=== PATIENT | female | born 1975 | race Caucasian/White ===

== ENCOUNTER 2017-04-05 18:03 | Observation (INO) ==
--- NOTE | 2017-04-05 18:53 | Emergency Department Note ---
START Narrative - START START: I examined this patient and my medical decision-making was reviewed with the Resident Physician. I agree with the documented findings, disposition and treatment plan as described except to the extent set forth below. 41-year-old female presents emergency room for dyspnea, chest pain, edema. History of congestive heart failure requiring a previous ICU admission. She states that for the past 2 days she has had this chest pain and chest pressure associated with dyspnea. She was seen at an outlying ER 2 nights ago in which they gave her a GI cocktail and Ativan and sent her home she states. Workup from a cardiac CHF standpoint from her and. Patient will likely need to be admitted.
[2017-04-05 19:15] LABS: Bilirubin,Urine Negative (Negative); Blood,Urine Negative (Negative); Clarity,Urine Clear (Clear); Color,Urine Yellow (Yellow); Glucose,Urine (UA) Normal (Normal); Ketones,Urine Negative (Negative); Leukocyte Esterase,Urine Negative (Negative); Nitrite,Urine Negative (Negative); PH,Urine 6.5 pH Units (5.0-8.0); Protein,Urine Negative (Neg-Trace); Specific Gravity,Urine 1.009 (1.010-1.025); Urobilinogen,Urine Normal (Normal)
[2017-04-05 19:24] LABS: Basophils % 0.4 %; Eosinophils # 0.4 K/mcL (0.0-0.6); Eosinophils % 4.5 %; Hematocrit 34.4 % (35.3-44.9); Hemoglobin 10.7 g/dL (11.5-15.4); Immature Granulocytes % 0.4 % (0-4); Lymphocytes % 32.2 %; Mean Corpuscular HGB Conc 31.1 g/dL (31.6-35.5); Mean Corpuscular Hemoglobin 29.2 pg (28.0-33.3); Mean Corpuscular Volume 93.7 fL (83.0-100.0); Monocytes # 0.5 K/mcL (0.0-1.3); Monocytes % 4.9 %; Neutrophils # 5.3 K/mcL (1.6-8.9); Platelet Count 232 K/mcL (140-400); Red Blood Count 3.67 M/mcL (3.82-4.97); Red Cell Distribution Width 16.7 % (11.5-14.5); Segmented Neutrophils % 57.6 %
[2017-04-05 19:37] LABS: BUN/Creatinine Ratio 11 (6-26); Blood Urea Nitrogen 8 mg/dL (7-20); Carbon Dioxide 22 mEq/L (19-29); Chloride 110 mEq/L (98-109); Glucose 90 mg/dL (70-99); Osmolality,Calculated 292 (280-300); Potassium 3.5 mEq/L (3.5-4.5); Sodium 142 mEq/L (136-145); eGFR For African Americans > 60 (> 60); eGFR For Non-African Americans > 60 (> 60)
[2017-04-05] MEDS ORDERED: Aspirin 325 MG TABLET PO ONE (19:48)
[2017-04-05] MEDS ORDERED: Furosemide 40 MG/4 ML VIAL IVP ONE (19:50)
[2017-04-05 19:55] LABS: Prothrombin Time 10.5 Seconds (9.4-12.1)
[2017-04-05 19:58] LABS: Activated Partial Thrombo Time 30.3 Seconds (26.0-36.0)
--- NOTE | 2017-04-05 20:05 | Emergency Department Note ---
Disposition Clinical Impression: Chest pain Qualifiers: Chest pain type: unspecified Qualified Code(s): R07.9 - Chest pain, unspecified Dyspnea Qualifiers: Dyspnea type: unspecified Qualified Code(s): R06.00 - Dyspnea, unspecified CHF exacerbation Qualifiers: Congestive heart failure type: unspecified congestive heart failure type Qualified Code(s): I50.9 - Heart failure, unspecified Disposition: Admitted As Inpatient Condition: Good General Adult HPI - General Chief complaint: ED Chest Pain Stated complaint: legs swelling, SOB and CP Time Seen by Provider: 04/05/17 18:28 Source: patient Limitations: no limitations Nursing Notes Reviewed: Yes Vital Signs Reviewed: Yes - History of Present Illness HPI Narrative: 41-year-old female with a past medical history of schizophrenia, bipolar, depression, congestive heart failure. She presents today due to chest pain, shortness of breath, lower extremity edema bilaterally. She states that at one point she was in the ICU with congestive heart failure but she cannot tell me why that happened. She denies having any issues with congestive heart failure since then and that was multiple years ago. She states that the pain in her chest is intermittent and is substernal. She went to an emergency department 2 days ago and was sent home and she states she is only getting worse. She denies having a fever. Denies any cough or productive sputum. She does take 20 mg of Lasix daily Radiation: non-radiation Pain Severity: severe Pain Scale: 9 Improves with: nothing Worsens with: other (exertion) Treatments Prior to Arrival: none - Related Data Home Medications Medication Instructions Recorded Confirmed Escitalopram [Lexapro] 20 mg PO DAILY 05/11/16 04/05/17 Acyclovir [Zovirax] 400 mg PO BID 08/30/16 04/05/17 Estradiol 2 mg PO DAILY 12/26/16 04/05/17 Furosemide [Lasix] 20 mg PO DAILY 12/26/16 04/05/17 Calcium Carbonate/Vitamin D3 1 each PO DAILY 04/03/17 04/05/17 [Oyster Shell Calcium-Vit D Tab] Clindamycin HCl [Cleocin HCl] 300 mg PO TID 04/03/17 04/05/17 Omeprazole [PriLOSEC] 20 mg PO BIDAC 04/03/17 04/05/17 Pyridoxine HCl [Vitamin B-6] 25 mg PO DAILY 04/03/17 04/05/17 hydrOXYzine pamoate [HydrOXYzine 25 mg PO BID 04/03/17 04/05/17 Pamoate] lamoTRIgine [Lamictal] 25 mg PO HS 04/03/17 04/05/17 Buspirone HCl [Buspar] 5 mg PO BID 04/05/17 04/05/17 Nicotine Patch [Nicoderm] 14 mg TD DAILY 04/05/17 04/05/17 OLANZapine [Zyprexa] 5 mg PO DAILY 04/05/17 04/05/17 Previous Rx's Medication Instructions Recorded Gabapentin [Neurontin] 300 mg PO TID #21 capsule 02/13/17 Allergies Allergy/AdvReac Type Severity Reaction Status Date / Time cephalexin [From Keflex] Allergy Hives Verified 04/05/17 21:37 fentanyl [From Duragesic] Allergy See Verified 04/05/17 21:37 Comments theophylline Allergy Anaphylaxis Verified 04/05/17 21:37 ketorolac [From Toradol] AdvReac Irritable Verified 04/05/17 21:37 NSAIDS (Non-Steroidal AdvReac Anaphylaxis Verified 04/05/17 21:37 Anti-Inflamma sulfamethoxazole AdvReac Vomiting Verified 04/05/17 21:37 [From Bactrim] tramadol [From Ultram] AdvReac Hives Verified 04/05/17 21:37 trimethoprim [From Bactrim] AdvReac Vomiting Verified 04/05/17 21:37 All systems ED: reviewed and negative except as stated. Constitutional: Denies: fever ENT ED: Denies: throat pain Cardiovascular: Reports: chest pain Respiratory: Reports: dyspnea. 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 Absent: respiratory distress - Cardiovascular Cardiovascular exam: Present: regular rate, normal rhythm - Abdominal Exam Abdominal exam: Present: soft, Non-Tender - Extremities Exam Extremities exam: Present: pedal edema (bilateral 2+ edema) - Neurological Exam Neurological exam: Present: alert, oriented X3 - Skin Skin exam: Present: warm, dry Course Course Narrative: Her BNP is elevated and she does have bilateral lower extremity edema. Her chest x-ray is negative. We will go ahead and give her some IV Lasix and a trial of nitro. In reviewing the records I do not see a chest pain rule out in the last few years. We will admit her to the hospital for CHF and chest pain rule out Vital Signs Temperature 98.2 F 04/05/17 18:09 Pulse Rate 102 04/05/17 18:09 Respiratory Rate 22 04/05/17 18:09 Blood Pressure 130/81 04/05/17 18:09 O2 Sat by Pulse Oximetry 93 04/05/17 18:09 Temperature 98.2 F 04/05/17 18:09 Pulse Rate 104 04/05/17 21:16 Respiratory Rate 16 04/05/17 21:16 Blood Pressure 131/77 04/05/17 21:16 O2 Sat by Pulse Oximetry 95 04/05/17 21:16 Oxygen Delivery Oxygen Delivery Room Air Medical Decision Making - Medical Records Medical records reviewed: Yes I reviewed the patient's medical records. - Lab Data Lab results reviewed: Yes I reviewed the patient's lab results. Result diagrams: 04/05/17 19:17 04/05/17 19:17 Lab Results 04/05/17 04/05/17 04/05/17 Range/Units 19:00 19:17 19:17 WBC (4.3-11.1) K/mcL RBC (3.82-4.97) M/mcL Hgb (11.5-15.4) g/dL Hct (35.3-44.9) % MCV (83.0-100.0) fL MCH (28.0-33.3) pg MCHC (31.6-35.5) g/dL RDW (11.5-14.5) % Plt Count (140-400) K/mcL MPV (9.4-12.4) fL Immature Gran % (0-4) % Seg Neutrophils % % Lymphocytes % % Monocytes % % Eosinophils % % Basophils % % Neutrophils # (1.6-8.9) K/mcL Lymphocytes # (0.6-4.6) K/mcL Monocytes # (0.0-1.3) K/mcL Eosinophils # (0.0-0.6) K/mcL Basophils # (0.0-0.2) K/mcL PT 10.5 (9.4-12.1) Seconds INR 1.0 APTT 30.3 (26.0-36.0) Seconds D-Dimer 558 H (0-500) ng/mLFEU Sodium (136-145) mEq/L Potassium (3.5-4.5) mEq/L Chloride (98-109) mEq/L Carbon Dioxide (19-29) mEq/L BUN (7-20) mg/dL Creatinine (0.57-1.11) mg/dL Est GFR ( Amer) (> 60) Est GFR (Non-Af Amer) (> 60) BUN/Creatinine Ratio (6-26) Glucose (70-99) mg/dL Calculated Osmolality (280-300) Calcium (8.6-10.8) mg/dL Troponin I (0-0.03) ng/mL B-Natriuretic Peptide 155 H (0-100) pg/mL Urine Color Yellow (Yellow) Urine Clarity Clear (Clear) Urine pH 6.5 (5.0-8.0) pH Units Ur Specific [place] 1.009 L (1.010-1.025) Urine Protein Negative (Neg-Trace) mg/dL Urine Glucose (UA) Normal (Normal) mg/dL Urine Ketones Negative (Negative) mg/dL Urine Blood Negative (Negative) Urine Nitrite Negative (Negative) Urine Bilirubin Negative (Negative) Urine Urobilinogen Normal (Normal) mg/dL Ur Leukocyte Esterase Negative (Negative) Ur Culture Indicated? NO (NO) 04/05/17 04/05/17 04/05/17 Range/Units 19:17 19:: WBC 9.2 (4.3-11.1) K/mcL RBC 3.67 L (3.82-4.97) M/mcL Hgb 10.7 L (11.5-15.4) g/dL Hct 34.4 L (35.3-44.9) % MCV 93.7 (83.0-100.0) fL MCH 29.2 (28.0-33.3) pg MCHC 31.1 L (31.6-35.5) g/dL RDW 16.7 H (11.5-14.5) % Plt Count 232 (140-400) K/mcL MPV 11.0 (9.4-12.4) fL Immature Gran % 0.4 (0-4) % Seg Neutrophils % 57.6 % Lymphocytes % 32.2 % Monocytes % 4.9 % Eosinophils % 4.5 % Basophils % 0.4 % Neutrophils # 5.3 (1.6-8.9) K/mcL Lymphocytes # 3.0 (0.6-4.6) K/mcL Monocytes # 0.5 (0.0-1.3) K/mcL Eosinophils # 0.4 (0.0-0.6) K/mcL Basophils # 0.0 (0.0-0.2) K/mcL PT (9.4-12.1) Seconds INR APTT (26.0-36.0) Seconds D-Dimer (0-500) ng/mLFEU Sodium 142 (136-145) mEq/L Potassium 3.5 (3.5-4.5) mEq/L Chloride 110 H (98-109) mEq/L Carbon Dioxide 22 (19-29) mEq/L BUN 8 (7-20) mg/dL Creatinine 0.72 (0.57-1.11) mg/dL Est GFR ( Amer) > 60 (> 60) Est GFR (Non-Af Amer) > 60 (> 60) BUN/Creatinine Ratio 11 (6-26) Glucose 90 (70-99) mg/dL Calculated Osmolality 292 (280-300) Calcium 9.0 (8.6-10.8) mg/dL Troponin I 0.01 (0-0.03) ng/mL B-Natriuretic Peptide (0-100) pg/mL Urine Color (Yellow) Urine Clarity (Clear) Urine pH (5.0-8.0) pH Units Ur Specific [place] (1.010-1.025) Urine Protein (Neg-Trace) mg/dL Urine Glucose (UA) (Normal) mg/dL Urine Ketones (Negative) mg/dL Urine Blood (Negative) Urine Nitrite (Negative) Urine Bilirubin (Negative) Urine Urobilinogen (Normal) mg/dL Ur Leukocyte Esterase (Negative) Ur Culture Indicated? (NO) - Radiology Data Radiology results reviewed: Yes I reviewed the patient's radiology results. - EKG Data EKG #1 EKG attestation: Yes I reviewed and interpreted this EKG. EKG shows normal: sinus rhythm Rate: normal Rhythm: NSR Clint/QRS: normal Interpretation: no acute changes Critical Care Time Critical Care Time: Yes Total Critical Care Time: 35 Attestation: Critical care performed: Time is exclusive of separately billable procedures. Time includes: direct patient care, patient reassessment, coordination of patient care, interpretation of data (laboratory data, radiology data, and respiratory data), review of patient's medical records, medical consultation and documentation of patient care. Procedures included in critical care time: Procedures excluded from critical care time: Attestation Statement - Attestation Attestation: I, Jerzy Pena MD, personally evaluated this patient and discussed their management with the resident physician. I reviewed the resident's note and agree with the documented findings, medical decision making, and plan of care. 41-year-old female presents to the emergency department with a complaint of increasing shortness of breath which started 2 days prior to arrival. Also some pressure and discomfort in her chest. She also complains of increasing swelling of her legs. She was seen at another facility 2 days ago and given a GI cocktail and Ativan. She states the symptoms have progressively worsened. She does have a history of CHF in the past requiring ICU admission. On examination patient is a well-developed obese female in no acute distress. She is alert and oriented 3. There is no cyanosis or diaphoresis. Patient is very anxious. No JVD noted. Breath sounds clear and equal bilaterally. Heart regular rate and rhythm. Abdomen soft and nontender with normal bowel sounds. No pedal edema noted. Labs reviewed. BNP is elevated at 155 and 2 days ago was 41. Also d-dimer elevated at 558. Chest x-ray negative. CTA of the lungs negative. No acute changes on EKG. Patient did receive Lasix 40 mg IV. The hospitalist, Dr. Louis, was consulted and accepted admission of the patient.
[2017-04-05] MEDS: Nitroglycerin 0.4 MG TAB.SUBL SL PRN (20:08)
[2017-04-05] MEDS ORDERED: *HR* HYDROmorphone (PF) 1 MG/ML SYRINGE IVP ONE (20:30)
--- NOTE | 2017-04-05 22:29 | Internal Med History&Physical ---
Date of Encounter: 04/05/17 Time of Encounter: 22:27 Assessment and Plan (1) CHF exacerbation Current visit: Yes Status: Acute Patient has diastolic congestive heart failure. Gentle diuresis. Will check echocardiogram. She had never had cardiac workup before. Serial cardiac markers. She has prior history of drug use. Will need workup to rule out coronary disease. See pantograph shows no evidence of pulmonary embolism. Will check venous Doppler's to rule out DVT. observation admission. Qualifiers: Congestive heart failure type: unspecified congestive heart failure type Qualified Code(s): I50.9 - Heart failure, unspecified Internal Medicine - H&P: HPI Chief complaint: sob History of present illness: Ms. Lin is a 41 year old female with multiple medical problems including congestive heart failure, etiology unclear on Lasix 20 mg PO daily, asthma, COPD not on home oxygen, history of hepatitis C virus infection, still smokes 2 packs of cigarettes daily presents of emergency room today with a main component of shortness of breath. For the past few days patient has been noticing progressive shortness of breath to the point where she short of breath with minimal exertion. She has noticed bilateral sporting both lower extremity and has gained 18 pounds over the past 2 weeks. She denies any increase. Production fever or chills. No chest wheezing. She has intermittent retrosternal chest pain with no clear relation to exertion. Past Med Surg Social Fam HX - Past Medical History Medical history: asthma, CHF, COPD, hepatitis, liver disease Psychiatric history: anxiety, bipolar, depression, schizophrenia, previous psychiatric hospitalization - Past Surgical History Surgical History: hysterectomy, other - Social History Smoking Status: Current every day smoker Smokeless Tobacco Status: No Alcohol use: none Drug use: none Internal Medicine - H&P: Meds Escitalopram [Lexapro] 20 mg PO DAILY 05/11/16 [History] Acyclovir [Zovirax] 400 mg PO BID 08/30/16 [History] Estradiol 2 mg PO DAILY 12/26/16 [History] Furosemide [Lasix] 20 mg PO DAILY 12/26/16 [History] Gabapentin [Neurontin] 300 mg PO TID #21 capsule 02/13/17 [Rx] Calcium Carbonate/Vitamin D3 [Oyster Shell Calcium-Vit D Tab] 1 each PO DAILY [History] Clindamycin HCl [Cleocin HCl] 300 mg PO TID 04/03/17 [History] Omeprazole [PriLOSEC] 20 mg PO BIDAC 04/03/17 [History] Pyridoxine HCl [Vitamin B-6] 25 mg PO DAILY 04/03/17 [History] hydrOXYzine pamoate [HydrOXYzine Pamoate] 25 mg PO BID 04/03/17 [History] lamoTRIgine [Lamictal] 25 mg PO HS 04/03/17 [History] Buspirone HCl [Buspar] 5 mg PO BID 04/05/17 [History] Nicotine Patch [Nicoderm] 14 mg TD DAILY 04/05/17 [History] OLANZapine [Zyprexa] 5 mg PO DAILY 04/05/17 [History] 3 Allergy/AdvReac Type Severity Reaction Status Date / Time cephalexin [From Keflex] Allergy Hives Verified 04/05/17 21:37 fentanyl [From Duragesic] Allergy See Verified 04/05/17 21:37 Comments theophylline Allergy Anaphylaxis Verified 04/05/17 21:37 ketorolac [From Toradol] AdvReac Irritable Verified 04/05/17 21:37 NSAIDS (Non-Steroidal AdvReac Anaphylaxis Verified 04/05/17 21:37 Anti-Inflamma sulfamethoxazole AdvReac Vomiting Verified 04/05/17 21:37 [From Bactrim] tramadol [From Ultram] AdvReac Hives Verified 04/05/17 21:37 trimethoprim [From Bactrim] AdvReac Vomiting Verified 04/05/17 21:37 All Systems PM: A 10-system review of systems was performed and is negative for pertinent findings except as documented above in the HPI. Review of systems: 10 point review of systems is negative except for HPI - Constitutional Vitals: Temp Pulse Resp BP Pulse Ox 98.2 F 104 16 131/77 95 04/05/17 18:09 04/05/17 21:16 04/05/17 21:16 04/05/17 21:16 04/05/17 21:16 Exam: General: Patient is A&O X3 Cardiac: normal S1, S2, no additional sounds or murmurs Chest: Clear to auscultation bilaterally Abdomen: soft, nontender, non distended, normal BS. Neuro: No focal deficits Internal Med - H&P Results - Labs CBC & Chem 7: 04/05/17 19:17 04/05/17 19:17
[2017-04-06] MEDS ORDERED: OxyCODONE CONC 5 MG/0.25 ML ORAL.SYG PO ONE (03:45)
[2017-04-06] MEDS ORDERED: *HR* OxyCODONE Immed Rel 5 MG TABLET PO ONE (04:10)
[2017-04-06 06:24] LABS: Basophils # 0.1 K/mcL (0.0-0.2); Basophils % 0.6 %; Eosinophils # 0.4 K/mcL (0.0-0.6); Eosinophils % 4.5 %; Hematocrit 33.4 % (35.3-44.9); Hemoglobin 10.2 g/dL (11.5-15.4); Immature Granulocytes % 0.4 % (0-4); Lymphocytes # 3.1 K/mcL (0.6-4.6); Lymphocytes % 33.2 %; Mean Corpuscular HGB Conc 30.5 g/dL (31.6-35.5); Mean Corpuscular Hemoglobin 28.7 pg (28.0-33.3); Mean Corpuscular Volume 94.1 fL (83.0-100.0); Mean Platelet Volume 11.7 fL (9.4-12.4); Monocytes # 0.6 K/mcL (0.0-1.3); Monocytes % 5.9 %; Neutrophils # 5.1 K/mcL (1.6-8.9); Platelet Count 227 K/mcL (140-400); Red Blood Count 3.55 M/mcL (3.82-4.97); Segmented Neutrophils % 55.4 %
[2017-04-06 06:41] LABS: BUN/Creatinine Ratio 14 (6-26); Blood Urea Nitrogen 11 mg/dL (7-20); Carbon Dioxide 24 mEq/L (19-29); Chloride 109 mEq/L (98-109); Creatine Kinase 65 Units/L (29-168); Glucose 123 mg/dL (70-99); Osmolality,Calculated 303 (280-300); Potassium 3.2 mEq/L (3.5-4.5); Sodium 146 mEq/L (136-145); eGFR For African Americans > 60 (> 60); eGFR For Non-African Americans > 60 (> 60)
[2017-04-06 07:01] LABS: Thyroid Stimulating Hormone 1.587 mcIU/mL (0.350-4.840)
[2017-04-06] MEDS: Gabapentin 300 MG CAPSULE PO SCH ×2 (08:37→16:18)
[2017-04-06] MEDS ORDERED: Acetaminophen 325 MG TABLET PO PRN (08:45)
[2017-04-06] MEDS ORDERED: Furosemide 20 MG/2 ML VIAL IVP SCH (09:00)
[2017-04-06] MEDS ORDERED: OLANZapine 5 MG TAB.RAPDIS PO SCH (09:00)
[2017-04-06] MEDS ORDERED: Nicotine 21 MG PATCH.TD24 TD SCH (09:00)
[2017-04-06 15:09] VITALS: BP 116/74
[2017-04-06] MEDS: Nitroglycerin 0.4 MG TAB.SUBL SL PRN (16:18)
--- NOTE | 2017-04-06 18:23 | Electrocardiograph Report ---
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
--- NOTE | 2017-04-06 19:07 | Discharge Summary ---
Date of Encounter: 04/06/17 Time of Encounter: 09:45 - Discharge Diagnosis (1) Chest pain Priority: Primary Status: Acute Comments: Patient reports midsternal chest pain for several days. It is intermittent without radiation. She does report shortness of breath, no nausea, no vomiting , no diarrhea or diaphoresis. Patient refused nitroglycerin throughout the day due to headache. She reports that she is allergic to NSAIDs as well. She reports that she is allergic to tramadol. At some point during the day she agreed to take a nitroglycerin and became tearful later on when she had a headache. I offered her Benadryl and Zofran for her headache. She is allergic to all NSAIDs so was unable to offer her Toradol. She stated she is going to leave and go to [facility], she is going to sign out AGAINST MEDICAL ADVICE. Troponins were negative 3. TSH was within normal limits 1.587. EKG was reviewed by me and showed sinus rhythm with a rate of 97 MD interval 108, QRS is 101 QTC 413. Echocardiogram done today revealed an LVEF of 60% with mild LV DD and no significant valvular dysfunction. All wall segments showed normal motion. I am concerned about some drug-seeking behavior. She has multiple allergies to multiple pain medications. I did start her gabapentin while she was here. 0ARRS report shows inconsistent prescribing of gabapentin, as well as prescriptions from several providers at several locations for oxycodone- acetaminophen as well as hydrocodone-acetaminophen. Qualifiers: Chest pain type: unspecified Qualified Code(s): R07.9 - Chest pain, unspecified (2) CHF exacerbation Priority: Primary Status: Acute Comments: Patient reports approximately 18 pound weight gain in 2 weeks as well as increasing shortness of breath, increasing VILLALTA. Lungs are clear without wheezing, rales, rhonchi, or respiratory distress. Echocardiogram results as above. Chest x-ray negative. BNP only mildly elevated at 155. She was treated with oxygen as well as IV Lasix. Qualifiers: Congestive heart failure type: unspecified congestive heart failure type Qualified Code(s): I50.9 - Heart failure, unspecified (3) Hepatitis C Priority: Secondary Status: Chronic Comments: Patient reports that she is positive for hepatitis C due to prior history of IV drug use. Patient states that she follows with primary care for treatment. Qualifiers: Viral hepatitis chronicity: chronic Hepatic coma status: without hepatic coma Qualified Code(s): B18.2 - Chronic viral hepatitis C (4) DVT prophylaxis Priority: Secondary Status: Acute Comments: Early ambulation was encouraged. - Discharge Medications Home Medications: Escitalopram [Lexapro] 20 mg PO DAILY 05/11/16 [History] Acyclovir [Zovirax] 400 mg PO BID 08/30/16 [History] Estradiol 2 mg PO DAILY 12/26/16 [History] Furosemide [Lasix] 20 mg PO DAILY 12/26/16 [History] Gabapentin [Neurontin] 300 mg PO TID #21 capsule 02/13/17 [Rx] Calcium Carbonate/Vitamin D3 [Oyster Shell Calcium-Vit D Tab] 1 each PO DAILY [History] Clindamycin HCl [Cleocin HCl] 300 mg PO TID 04/03/17 [History] Omeprazole [PriLOSEC] 20 mg PO BIDAC 04/03/17 [History] Pyridoxine HCl [Vitamin B-6] 25 mg PO DAILY 04/03/17 [History] hydrOXYzine pamoate [HydrOXYzine Pamoate] 25 mg PO BID 04/03/17 [History] lamoTRIgine [Lamictal] 25 mg PO HS 04/03/17 [History] Buspirone HCl [Buspar] 5 mg PO BID 04/05/17 [History] Nicotine Patch [Nicoderm] 14 mg TD DAILY 04/05/17 [History] OLANZapine [Zyprexa] 5 mg PO DAILY 04/05/17 [History] Allergies/Adverse Reactions: 3 Allergy/AdvReac Type Severity Reaction Status Date / Time cephalexin [From Keflex] Allergy Hives Verified 04/05/17 21:37 fentanyl [From Duragesic] Allergy See Verified 04/05/17 21:37 Comments theophylline Allergy Anaphylaxis Verified 04/05/17 21:37 ketorolac [From Toradol] AdvReac Irritable Verified 04/05/17 21:37 NSAIDS (Non-Steroidal AdvReac Anaphylaxis Verified 04/05/17 21:37 Anti-Inflamma sulfamethoxazole AdvReac Vomiting Verified 04/05/17 21:37 [From Bactrim] tramadol [From Ultram] AdvReac Hives Verified 04/05/17 21:37 trimethoprim [From Bactrim] AdvReac Vomiting Verified 04/05/17 21:37 Procedures/tests Complete & Pending: Procedures Performed prior 72 hours Category Date Time Status EV echocardiogram Routine Y 04/06/17 13:00 Completed EV venous imaging LE BI Routine Y 04/06/17 13:00 Completed Date of admission: 04/05/17 21:58 Primary care physician: Meghan Johnston MD Consults: 04/05/17 22:13 Consult to Physical Therapy [CONS] Routine Comment: Evaluate, develop and implement POC Reason for Consult: weakness Discharging clinician: Sindi Wong Anticipated date of discharge: 04/06/17 - Patient Status Disposition: Home, Self-Care Condition: Good - Discharge Instructions Forms: ED Satisfaction Letter Interval History: Please see assessment and plan for hospital course. Hospital course: Ms. Lin is a 41 year old female - Time Spent with Patient Total time spent providing and/or coordinating discharge services: - Constitutional Vitals: Temp Pulse Resp BP Pulse Ox 98.5 F 95 18 116/74 95 04/06/17 15:09 04/06/17 15:09 04/06/17 15:09 04/06/17 15:09 04/06/17 15:09 General appearance: Present: cooperative, A&O X 3, no acute distress, answers questions appropriately - Head Head exam: Present: atraumatic, normal inspection, normocephalic - Eye Eye exam: Present: normal appearance, conjuntiva pink, sclera anicteric - Neck Neck exam general surgery: Present: supple, trachea midline. Absent: lymphadenopathy - Respiratory Respiratory exam: Present: CTAB. Absent: accessory muscle use, rales, rhonchi, wheezes - Cardiovascular Cardiovascular exam: Present: RRR, +S1, +S2. Absent: diastolic murmur, gallop, rubs, systolic murmur - GI/Abdominal GI/Abdominal exam: Present: normal bowel sounds, soft, no peritoneal signs. Absent: distended, tenderness Additional comments: Abdomen is obese. - Extremities Exam Extremities exam: Present: normal inspection, pedal edema, warm, radial pulses palpable and symmetrical. Absent: calf tenderness, cyanotic, tenderness - Neurological Exam Neurological exam: Present: alert, oriented X3, no focal deficits. Absent: facial droop, speech deficit - Skin Skin exam: Present: dry, intact, normal color, warm. Absent: rash
[2017-04-06] MEDS ORDERED: lamoTRIgine 25 MG TABLET PO SCH (21:00)
--- NOTE | 2017-04-07 19:06 | Electrocardiograph Report ---
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
[2017-04-09 03:14] LABS: CK-MB (CK isoenzymes) 0 % (0-4); CK-MM (CK-isoenzymes) 100 % (96-100)
[2017-04-09 03:14] LABS: CK-MB (CK isoenzymes) 0 % (0-4); CK-MM (CK-isoenzymes) 100 % (96-100)
[2017-04-10 09:34] LABS: CK Total (Ck Isoenzymes) 67 U/L (20-180); CK-BB (CK isoenzymes) 0 % (0-0)
[2017-04-10 09:34] LABS: CK Total (Ck Isoenzymes) 68 U/L (20-180); CK-BB (CK isoenzymes) 0 % (0-0)
== END 2017-04-06 17:19 | disposition home or self-care (01) ==
LOC: 3BNU 18:03 → EMEROO 18:03 → 3BNU 23:24
PROVIDERS: ADMIT Hospitalist; ATTEND Registered Nurse

== ENCOUNTER 2020-11-23 10:31 | Inpatient (IN) ==
[2020-11-23] MEDS ORDERED: Naloxone 0.4 MG/ML INJ IVP PRN (11:55)
[2020-11-23] MEDS ORDERED: Ondansetron 4 MG/2 ML VIAL IVP PRN (11:55)
[2020-11-23] MEDS ORDERED: Dextrose Gel 15 GM/37.5 ML TUBE PO PRN ×2 (11:59)
[2020-11-23] MEDS ORDERED: D5% in Water 1,000 ML IVC PRN (11:59)
[2020-11-23] MEDS ORDERED: *HR* Dextrose 50 % in Water (Vial) 50 ML VIAL IVP PRN (11:59)
[2020-11-23] MEDS ORDERED: Insulin LISPRO 300 UNITS/3 ML VIAL SUBQ SCH (12:00)
[2020-11-23] MEDS ORDERED: levoFLOXacin 750 MG/150 ML 750 MG/150 ML BAG IVPB SCH (12:00)
[2020-11-23] MEDS ORDERED: Ringers Solution, Lactated 1,000 ML IVC SCH (12:00)
[2020-11-23 13:22] LABS: Basophils # 0.1 K/mcL (0.0-0.2); Basophils % 0.6 %; Eosinophils # 0.7 K/mcL (0.0-0.6); Eosinophils % 5.2 %; Hematocrit 44.2 % (35.3-44.9); Hemoglobin 13.9 g/dL (11.5-15.4); Immature Granulocytes % 0.4 % (0-4); Lymphocytes # 3.7 K/mcL (0.6-4.6); Lymphocytes % 29.6 %; Mean Corpuscular HGB Conc 31.4 g/dL (31.6-35.5); Mean Corpuscular Hemoglobin 27.3 pg (28.0-33.3); Mean Corpuscular Volume 86.7 fL (83.0-100.0); Mean Platelet Volume 11.5 fL (9.4-12.4); Monocytes # 0.6 K/mcL (0.0-1.3); Neutrophils # 7.4 K/mcL (1.6-8.9); Platelet Count 251 K/mcL (140-400); Red Cell Distribution Width 13.4 % (11.5-14.5); Segmented Neutrophils % 59.2 %; White Blood Count 12.5 K/mcL (4.3-11.1)
[2020-11-23 13:38] LABS: INR 1.1; Prothrombin Time 12.5 Seconds (9.4-12.1)
[2020-11-23 13:41] LABS: Activated Partial Thrombo Time 31.3 Seconds (26.0-36.0)
[2020-11-23 13:54] LABS: Alanine Aminotransferase 11 Units/L (7-52); Albumin 4.2 g/dL (3.5-5.7); Albumin/Globulin Ratio 1.5 (1.1-2.2); Alkaline Phosphatase 87 Units/L (34-104); Aspartate Amino Transferase 14 Units/L (13-39); BUN/Creatinine Ratio 9 (6-26); Bilirubin,Total 0.3 mg/dL (0.3-1.0); Blood Urea Nitrogen 7 mg/dL (6-20); Calcium 9.6 mg/dL (8.6-10.3); Carbon Dioxide 26 mEq/L (23-29); Chloride 100 mEq/L (98-107); Globulin 2.8 g/dL (2.4-3.5); Glucose 136 mg/dL (70-105); Magnesium 1.5 mg/dL (1.6-2.6); Osmolality,Calculated 292 (280-300); Phosphorous 4.4 mg/dL (2.7-4.5); Sodium 141 mEq/L (136-145); eGFR For African Americans > 60 (> 60); eGFR For Non-African Americans > 60 (> 60)
[2020-11-23] MEDS ORDERED: Vancomycin 1,750 MG/517.5 ML IV.SOLN IVPB SCH (14:00)
[2020-11-23] MEDS ORDERED: *HR* LORazepam 1 MG TABLET PO PRN (16:59)
[2020-11-23] MEDS ORDERED: Nitroglycerin 0.4 MG TAB.SUBL SL PRN (16:59)
[2020-11-23] MEDS: Nicotine 21 MG PATCH.TD24 TD SCH (17:29)
[2020-11-23] MEDS: Acyclovir 200 MG CAPSULE PO SCH (20:52)
[2020-11-23] MEDS: *HR* OxyCODONE/APAP 10/325 TABLET PO PRN (20:52)
[2020-11-23] MEDS ORDERED: traZODone 50 MG TABLET PO SCH (21:00)
[2020-11-24] MEDS: *HR* OxyCODONE/APAP 10/325 TABLET PO PRN ×2 (08:15→15:00)
[2020-11-24] MEDS: Acyclovir 200 MG CAPSULE PO SCH (08:20)
[2020-11-24] MEDS: Nicotine 21 MG PATCH.TD24 TD SCH (08:23)
[2020-11-24] MEDS ORDERED: Cyanocobalamin (B-12) 1,000 MCG TABLET PO SCH (09:00)
[2020-11-24] MEDS ORDERED: Venlafaxine XR (24 HR) 75 MG CAP.ER.24H PO SCH (09:00)
[2020-11-24] MEDS ORDERED: PALIPERIDONE 1.5 MG PO SCH (09:00)
[2020-11-24] MEDS ORDERED: *HR* OxyCODONE Immed Rel 5 MG TABLET PO PRN (19:12)
[2020-11-24] MEDS ORDERED: *HR* HYDROmorphone PF 0.5 MG/0.5 ML SYRINGE IVP PRN (19:12)
[2020-11-24] MEDS ORDERED: *HR* Succinylcholine 200 MG/10 ML VIAL IVP ONE (20:26)
[2020-11-24] MEDS ORDERED: Lidocaine -MPF 2% 2 ML VIAL ONE (20:26)
[2020-11-24] MEDS ORDERED: *HR* Propofol 200 MG/20 ML VIAL IVP ONE (20:27)
[2020-11-24] MEDS ORDERED: *HR* FentaNYL (PF) 100 MCG/2 ML VIAL ONE ×2 (20:27→23:42)
[2020-11-24] MEDS ORDERED: *HR* Midazolam HCl 2 MG/2 ML VIAL ONE (20:27)
[2020-11-24] MEDS ORDERED: Lidocaine -MPF 4% 5 ML AMPUL ONE (20:31)
[2020-11-24] MEDS ORDERED: Vancomycin 1,750 MG in 0.9 % Sodium Chloride 250 ML IVPB SCH (21:00)
[2020-11-24] MEDS ORDERED: Cefepime HCl 2,000 MG in 0.9 % Sodium Chloride Mini Bag 100 ML IVPB SCH (21:00)
[2020-11-24] MEDS ORDERED: traZODone 50 MG TABLET PO SCH (21:00)
[2020-11-24] MEDS ORDERED: *HR* Magnesium Sulfate 1 GM/2 ML VIAL ONE (23:46)
[2020-11-24] MEDS ORDERED: *HR* HYDROMORPHONE 2 MG/ML VIAL ONE (23:48)
[2020-11-24] MEDS ORDERED: Acetaminophen IV 1,000 MG/100 ML BAG IVPB ONE (23:49)
[2020-11-25] MEDS ORDERED: Ondansetron 4 MG/2 ML VIAL ONE
[2020-11-25] MEDS ORDERED: Morphine Sulfate 2 MG/ML SYRINGE IVP PRN (00:31)
[2020-11-25] MEDS ORDERED: Ipratropium/Albuterol Neb 3 ML ONE (00:37)
[2020-11-25] MEDS ORDERED: Promethazine 6.25 MG in Water for inj. (sterile) 20 ML IVPB PRN (00:43)
[2020-11-25] MEDS ORDERED: Dextrose Gel 15 GM/37.5 ML TUBE PO PRN ×4 (01:32→12:31)
[2020-11-25] MEDS ORDERED: *HR* OxyCODONE/APAP 10/325 TABLET PO PRN (01:32)
[2020-11-25] MEDS ORDERED: Naloxone 0.4 MG/ML INJ IVP PRN (01:32)
[2020-11-25] MEDS ORDERED: *HR* Dextrose 50 % in Water (Vial) 50 ML VIAL IVP PRN ×2 (01:32→12:31)
[2020-11-25] MEDS ORDERED: Ondansetron 4 MG/2 ML VIAL IVP PRN (01:32)
[2020-11-25] MEDS ORDERED: Nitroglycerin 0.4 MG TAB.SUBL SL PRN (01:32)
[2020-11-25] MEDS ORDERED: D5% in Water 1,000 ML IVC PRN ×2 (01:32→12:31)
[2020-11-25] MEDS ORDERED: *HR* HYDROmorphone PF 0.5 MG/0.5 ML SYRINGE IVP PRN (01:32)
[2020-11-25] MEDS: Acyclovir 200 MG CAPSULE PO SCH ×3 (01:34→20:41)
[2020-11-25] MEDS: Vancomycin 1,750 MG/517.5 ML IV.SOLN IVPB SCH ×2 (02:09→14:41)
[2020-11-25 02:33] LABS: Hematocrit 42.5 % (35.3-44.9); Hemoglobin 13.1 g/dL (11.5-15.4); Mean Corpuscular HGB Conc 30.8 g/dL (31.6-35.5); Mean Corpuscular Hemoglobin 27.1 pg (28.0-33.3); Mean Corpuscular Volume 87.8 fL (83.0-100.0); Mean Platelet Volume 11.3 fL (9.4-12.4); Platelet Count 200 K/mcL (140-400); Red Blood Count 4.84 M/mcL (3.82-4.97); Red Cell Distribution Width 13.2 % (11.5-14.5); White Blood Count 12.7 K/mcL (4.3-11.1)
[2020-11-25 02:50] LABS: BUN/Creatinine Ratio 13 (6-26); Blood Urea Nitrogen 9 mg/dL (6-20); Calcium 8.9 mg/dL (8.6-10.3); Carbon Dioxide 29 mEq/L (23-29); Chloride 100 mEq/L (98-107); Glucose 129 mg/dL (70-105); Osmolality,Calculated 296 (280-300); Potassium 3.6 mEq/L (3.5-5.1); Sodium 143 mEq/L (136-145); eGFR For African Americans > 60 (> 60); eGFR For Non-African Americans > 60 (> 60)
[2020-11-25] MEDS: Venlafaxine XR (24 HR) 75 MG CAP.ER.24H PO SCH (08:01)
[2020-11-25] MEDS: Nicotine 21 MG PATCH.TD24 TD SCH (08:01)
[2020-11-25] MEDS: Cyanocobalamin (B-12) 1,000 MCG TABLET PO SCH (08:01)
[2020-11-25] MEDS: Cefepime HCl 2,000 MG in 0.9 % Sodium Chloride Mini Bag 100 ML IVPB SCH ×2 (08:02→20:42)
[2020-11-25] MEDS: PALIPERIDONE 1.5 MG PO SCH (08:05)
[2020-11-25] MEDS: Morphine Sulfate 2 MG/ML SYRINGE IVP PRN ×4 (08:16→22:42)
[2020-11-25] MEDS ORDERED: Acetaminophen IV 1,000 MG/100 ML BAG IVPB ONE (11:22)
[2020-11-25] MEDS: *HR* LORazepam 1 MG TABLET PO PRN (12:45)
[2020-11-25] MEDS: Insulin LISPRO 300 UNITS/3 ML VIAL SUBQ SCH ×3 (13:01→20:43)
[2020-11-25] MEDS: *HR* OxyCODONE/APAP 10/325 TABLET PO PRN ×2 (14:40→20:43)
[2020-11-25] MEDS ORDERED: Ipratropium/Albuterol Neb 3 ML IH PRN (17:43)
[2020-11-25] MEDS: Lactobacillus 1 EACH CAP.SPRINK PO SCH (20:40)
[2020-11-25] MEDS: traZODone 50 MG TABLET PO SCH (20:41)
[2020-11-25] MEDS: Nystatin Cream 15 GM TUBE TP SCH (21:42)
[2020-11-26] MEDS: *HR* OxyCODONE/APAP 10/325 TABLET PO PRN ×4 (02:59→21:52)
[2020-11-26] MEDS: Vancomycin 1,750 MG/517.5 ML IV.SOLN IVPB SCH ×2 (04:04→15:25)
[2020-11-26 04:46] LABS: Basophils % 0.3 %; Eosinophils % 0.2 %; Hematocrit 38.2 % (35.3-44.9); Hemoglobin 12.5 g/dL (11.5-15.4); Immature Granulocytes % 0.7 % (0-4); Lymphocytes # 2.7 K/mcL (0.6-4.6); Lymphocytes % 17.6 %; Mean Corpuscular HGB Conc 32.7 g/dL (31.6-35.5); Mean Corpuscular Hemoglobin 28.3 pg (28.0-33.3); Mean Corpuscular Volume 86.6 fL (83.0-100.0); Mean Platelet Volume 12.2 fL (9.4-12.4); Monocytes # 0.6 K/mcL (0.0-1.3); Monocytes % 3.8 %; Neutrophils # 11.7 K/mcL (1.6-8.9); Platelet Count 193 K/mcL (140-400); Red Blood Count 4.41 M/mcL (3.82-4.97); Red Cell Distribution Width 13.2 % (11.5-14.5); Segmented Neutrophils % 77.4 %; White Blood Count 15.1 K/mcL (4.3-11.1)
[2020-11-26] MEDS: Morphine Sulfate 2 MG/ML SYRINGE IVP PRN ×4 (04:53→23:25)
[2020-11-26 05:02] LABS: BUN/Creatinine Ratio 20 (6-26); Blood Urea Nitrogen 13 mg/dL (6-20); Calcium 8.8 mg/dL (8.6-10.3); Carbon Dioxide 24 mEq/L (23-29); Chloride 107 mEq/L (98-107); Glucose 129 mg/dL (70-105); Magnesium 2.1 mg/dL (1.6-2.6); Osmolality,Calculated 298 (280-300); Potassium 3.8 mEq/L (3.5-5.1); Sodium 143 mEq/L (136-145); eGFR For African Americans > 60 (> 60); eGFR For Non-African Americans > 60 (> 60)
[2020-11-26 05:04] LABS: Estimated Average Glucose 120 mg/dl; Hemoglobin A1C 5.8 %
[2020-11-26] MEDS: *HR* Enoxaparin 40 MG/0.4 ML SYRINGE SQ SCH (05:50)
[2020-11-26] MEDS: Insulin LISPRO 300 UNITS/3 ML VIAL SUBQ SCH ×4 (08:53→20:37)
[2020-11-26] MEDS: Multivit/Ca/Min/Fe/FA 1 TAB TABLET PO SCH (09:03)
[2020-11-26] MEDS: Aspirin Enteric Coated 81 MG Tablet PO SCH (09:03)
[2020-11-26] MEDS: Lactobacillus 1 EACH CAP.SPRINK PO SCH ×2 (09:03→20:07)
[2020-11-26] MEDS: Loratadine 10 MG TABLET PO SCH (09:03)
[2020-11-26] MEDS: Cefepime HCl 2,000 MG in 0.9 % Sodium Chloride Mini Bag 100 ML IVPB SCH ×2 (09:04→21:41)
[2020-11-26] MEDS: Venlafaxine XR (24 HR) 75 MG CAP.ER.24H PO SCH (09:04)
[2020-11-26] MEDS: Acyclovir 200 MG CAPSULE PO SCH ×2 (09:04→20:08)
[2020-11-26] MEDS: Nicotine 21 MG PATCH.TD24 TD SCH (09:05)
[2020-11-26] MEDS: Cyanocobalamin (B-12) 1,000 MCG TABLET PO SCH (09:08)
[2020-11-26] MEDS ORDERED: Isovue-370 500 ML BOTTLE IVP ONE ×2 (09:16→11:15)
[2020-11-26] MEDS: PALIPERIDONE 1.5 MG PO SCH (11:54)
[2020-11-26] MEDS: Nystatin Cream 15 GM TUBE TP SCH ×2 (11:54→20:15)
[2020-11-26] MEDS ORDERED: Clindamycin 600 MG/50 ML 600 MG/50 ML IV.SOLN IVPB SCH (12:00)
[2020-11-26] MEDS: Clindamycin 900 MG/50 ML 900 MG/50 ML IV.SOLN IVPB SCH ×2 (12:18→20:13)
[2020-11-26] MEDS: Famotidine 20 MG TABLET PO SCH (20:07)
[2020-11-26] MEDS: traZODone 50 MG TABLET PO SCH (20:08)
[2020-11-27] MEDS: Vancomycin 1,750 MG/517.5 ML IV.SOLN IVPB SCH ×2 (01:06→14:34)
[2020-11-27 03:01] LABS: Basophils # 0.1 K/mcL (0.0-0.2); Basophils % 0.6 %; Eosinophils # 0.3 K/mcL (0.0-0.6); Eosinophils % 2.3 %; Hematocrit 36.4 % (35.3-44.9); Hemoglobin 11.2 g/dL (11.5-15.4); Immature Granulocytes % 0.5 % (0-4); Mean Corpuscular HGB Conc 30.8 g/dL (31.6-35.5); Mean Corpuscular Hemoglobin 27.5 pg (28.0-33.3); Mean Corpuscular Volume 89.4 fL (83.0-100.0); Monocytes # 0.5 K/mcL (0.0-1.3); Monocytes % 4.8 %; Neutrophils # 6.2 K/mcL (1.6-8.9); Platelet Count 167 K/mcL (140-400); Red Blood Count 4.07 M/mcL (3.82-4.97); Red Cell Distribution Width 13.5 % (11.5-14.5); Segmented Neutrophils % 55.8 %; White Blood Count 11.1 K/mcL (4.3-11.1)
[2020-11-27 03:17] LABS: BUN/Creatinine Ratio 24 (6-26); Blood Urea Nitrogen 18 mg/dL (6-20); Calcium 8.4 mg/dL (8.6-10.3); Carbon Dioxide 25 mEq/L (23-29); Chloride 109 mEq/L (98-107); Glucose 86 mg/dL (70-105); Osmolality,Calculated 297 (280-300); Sodium 143 mEq/L (136-145); eGFR For African Americans > 60 (> 60); eGFR For Non-African Americans > 60 (> 60)
[2020-11-27] MEDS: Clindamycin 900 MG/50 ML 900 MG/50 ML IV.SOLN IVPB SCH (03:41)
[2020-11-27] MEDS: *HR* OxyCODONE/APAP 10/325 TABLET PO PRN ×3 (08:05→21:08)
[2020-11-27] MEDS: Nicotine 21 MG PATCH.TD24 TD SCH (08:05)
[2020-11-27] MEDS: Lactobacillus 1 EACH CAP.SPRINK PO SCH ×2 (08:06→21:08)
[2020-11-27] MEDS: Cyanocobalamin (B-12) 1,000 MCG TABLET PO SCH (08:06)
[2020-11-27] MEDS: Acyclovir 200 MG CAPSULE PO SCH ×2 (08:07→21:08)
[2020-11-27] MEDS: Multivit/Ca/Min/Fe/FA 1 TAB TABLET PO SCH (08:07)
[2020-11-27] MEDS: Venlafaxine XR (24 HR) 75 MG CAP.ER.24H PO SCH (08:07)
[2020-11-27] MEDS: Famotidine 20 MG TABLET PO SCH ×2 (08:07→21:07)
[2020-11-27] MEDS: Loratadine 10 MG TABLET PO SCH (08:08)
[2020-11-27] MEDS: Aspirin Enteric Coated 81 MG Tablet PO SCH (08:08)
[2020-11-27] MEDS: Nystatin Cream 15 GM TUBE TP SCH ×2 (08:08→21:07)
[2020-11-27] MEDS: *HR* Enoxaparin 40 MG/0.4 ML SYRINGE SQ SCH (08:09)
[2020-11-27] MEDS: Cefepime HCl 2,000 MG in 0.9 % Sodium Chloride Mini Bag 100 ML IVPB SCH ×2 (09:01→21:05)
[2020-11-27] MEDS: Morphine Sulfate 2 MG/ML SYRINGE IVP PRN ×3 (09:46→22:36)
[2020-11-27] MEDS: Insulin LISPRO 300 UNITS/3 ML VIAL SUBQ SCH ×4 (11:08→21:10)
[2020-11-27] MEDS: *HR* LORazepam 1 MG TABLET PO PRN (18:02)
[2020-11-27] MEDS: traZODone 50 MG TABLET PO SCH (21:06)
[2020-11-27] MEDS: Patient Taking Own Medication 1 EACH PO SCH (21:13)
[2020-11-28] MEDS: *HR* OxyCODONE/APAP 10/325 TABLET PO PRN ×4 (03:02→22:00)
[2020-11-28] MEDS: Morphine Sulfate 2 MG/ML SYRINGE IVP PRN ×3 (05:52→17:30)
[2020-11-28] MEDS: *HR* Enoxaparin 40 MG/0.4 ML SYRINGE SQ SCH (05:53)
[2020-11-28 06:34] LABS: Basophils # 0.1 K/mcL (0.0-0.2); Basophils % 0.5 %; Eosinophils # 0.3 K/mcL (0.0-0.6); Hemoglobin 11.4 g/dL (11.5-15.4); Immature Granulocytes % 0.5 % (0-4); Lymphocytes # 2.9 K/mcL (0.6-4.6); Lymphocytes % 26.4 %; Mean Corpuscular Hemoglobin 26.7 pg (28.0-33.3); Mean Platelet Volume 11.7 fL (9.4-12.4); Monocytes # 0.5 K/mcL (0.0-1.3); Monocytes % 4.9 %; Neutrophils # 7.1 K/mcL (1.6-8.9); Platelet Count 167 K/mcL (140-400); Red Blood Count 4.27 M/mcL (3.82-4.97); Red Cell Distribution Width 13.4 % (11.5-14.5); Segmented Neutrophils % 64.7 %
[2020-11-28 06:56] LABS: BUN/Creatinine Ratio 29 (6-26); Blood Urea Nitrogen 21 mg/dL (6-20); Calcium 8.8 mg/dL (8.6-10.3); Carbon Dioxide 27 mEq/L (23-29); Chloride 109 mEq/L (98-107); Glucose 93 mg/dL (70-105); Magnesium 2.1 mg/dL (1.6-2.6); Osmolality,Calculated 293 (280-300); Potassium 4.1 mEq/L (3.5-5.1); Sodium 140 mEq/L (136-145); eGFR For African Americans > 60 (> 60); eGFR For Non-African Americans > 60 (> 60)
[2020-11-28] MEDS: Insulin LISPRO 300 UNITS/3 ML VIAL SUBQ SCH ×4 (07:39→21:02)
[2020-11-28] MEDS: Acyclovir 200 MG CAPSULE PO SCH ×2 (09:24→20:42)
[2020-11-28] MEDS: Lactobacillus 1 EACH CAP.SPRINK PO SCH ×2 (09:24→20:42)
[2020-11-28] MEDS: Multivit/Ca/Min/Fe/FA 1 TAB TABLET PO SCH (09:24)
[2020-11-28] MEDS: Famotidine 20 MG TABLET PO SCH ×2 (09:25→20:42)
[2020-11-28] MEDS: Cyanocobalamin (B-12) 1,000 MCG TABLET PO SCH (09:25)
[2020-11-28] MEDS: Aspirin Enteric Coated 81 MG Tablet PO SCH (09:25)
[2020-11-28] MEDS: Loratadine 10 MG TABLET PO SCH (09:25)
[2020-11-28] MEDS: Venlafaxine XR (24 HR) 75 MG CAP.ER.24H PO SCH (09:25)
[2020-11-28] MEDS: Cefepime HCl 2,000 MG in 0.9 % Sodium Chloride Mini Bag 100 ML IVPB SCH (09:26)
[2020-11-28] MEDS: Patient Taking Own Medication 1 EACH PO SCH (09:26)
[2020-11-28] MEDS: Nicotine 21 MG PATCH.TD24 TD SCH (10:43)
[2020-11-28] MEDS: traZODone 50 MG TABLET PO SCH (20:42)
[2020-11-28] MEDS: levoFLOXacin 750 MG TABLET PO SCH (20:43)
[2020-11-28] MEDS: Nystatin Cream 15 GM TUBE TP SCH (20:44)
[2020-11-28] MEDS ORDERED: Clotrimazole Vag CRM 45 GM TUBE VG SCH (21:00)
[2020-11-29] MEDS: Morphine Sulfate 2 MG/ML SYRINGE IVP PRN ×2 (00:02→07:20)
[2020-11-29 04:32] LABS: Basophils # 0.1 K/mcL (0.0-0.2); Basophils % 0.5 %; Eosinophils # 0.4 K/mcL (0.0-0.6); Hematocrit 36.1 % (35.3-44.9); Immature Granulocytes % 0.4 % (0-4); Lymphocytes # 2.7 K/mcL (0.6-4.6); Mean Corpuscular HGB Conc 30.5 g/dL (31.6-35.5); Mean Corpuscular Hemoglobin 26.8 pg (28.0-33.3); Monocytes # 0.6 K/mcL (0.0-1.3); Monocytes % 5.2 %; Neutrophils # 6.9 K/mcL (1.6-8.9); Platelet Count 162 K/mcL (140-400); Red Cell Distribution Width 13.3 % (11.5-14.5); Segmented Neutrophils % 64.9 %; White Blood Count 10.6 K/mcL (4.3-11.1)
[2020-11-29 04:40] LABS: BUN/Creatinine Ratio 26 (6-26); Blood Urea Nitrogen 17 mg/dL (6-20); Calcium 8.6 mg/dL (8.6-10.3); Carbon Dioxide 27 mEq/L (23-29); Chloride 107 mEq/L (98-107); Glucose 109 mg/dL (70-105); Osmolality,Calculated 296 (280-300); Potassium 4.1 mEq/L (3.5-5.1); Sodium 142 mEq/L (136-145); eGFR For African Americans > 60 (> 60); eGFR For Non-African Americans > 60 (> 60)
[2020-11-29] MEDS: *HR* OxyCODONE/APAP 10/325 TABLET PO PRN ×2 (05:14→11:33)
[2020-11-29 06:28] VITALS: BP 126/67; PULSE 72; TEMP 97.6; O2SAT 98
[2020-11-29] MEDS: Nystatin Cream 15 GM TUBE TP SCH (07:10)
[2020-11-29] MEDS: Insulin LISPRO 300 UNITS/3 ML VIAL SUBQ SCH (07:10)
[2020-11-29] MEDS: levoFLOXacin 750 MG TABLET PO SCH (07:18)
[2020-11-29] MEDS: Famotidine 20 MG TABLET PO SCH (07:18)
[2020-11-29] MEDS: Multivit/Ca/Min/Fe/FA 1 TAB TABLET PO SCH (07:18)
[2020-11-29] MEDS: Lactobacillus 1 EACH CAP.SPRINK PO SCH (07:18)
[2020-11-29] MEDS: Venlafaxine XR (24 HR) 75 MG CAP.ER.24H PO SCH (07:18)
[2020-11-29] MEDS: Loratadine 10 MG TABLET PO SCH (07:19)
[2020-11-29] MEDS: *HR* Enoxaparin 40 MG/0.4 ML SYRINGE SQ SCH (07:19)
[2020-11-29] MEDS: Aspirin Enteric Coated 81 MG Tablet PO SCH (07:19)
[2020-11-29] MEDS: Acyclovir 200 MG CAPSULE PO SCH (07:19)
[2020-11-29] MEDS: Cyanocobalamin (B-12) 1,000 MCG TABLET PO SCH (07:19)
[2020-11-29] MEDS: Nicotine 21 MG PATCH.TD24 TD SCH (07:19)
[2020-11-29] MEDS: Patient Taking Own Medication 1 EACH PO SCH (08:43)
== END 2020-11-29 11:38 | disposition home or self-care (01) | DRG 857 ==
LOC: 3ANU → SUATTDRO 10:56 → 3NENU 11-26 22:49
PROVIDERS: ADMIT Internal Medicine; ATTEND Pharmacist

== ENCOUNTER 2021-06-18 16:30 | Inpatient (IN) ==
[2021-06-18] MEDS ORDERED: QUEtiapine Fumarate 25 MG TABLET PO PRN (17:48)
[2021-06-18] MEDS ORDERED: MOM Conc 10 ML UD.LIQ PO PRN (17:48)
[2021-06-18] MEDS ORDERED: *HR* LORazepam 2 MG/ML VIAL IM PRN (17:48)
[2021-06-18] MEDS ORDERED: Mag Hydrox/Al Hydrox/Simeth 30 ML UDC PO PRN (17:48)
[2021-06-18] MEDS ORDERED: Haloperidol Lactate 5 MG/ML VIAL IM PRN (17:48)
[2021-06-18] MEDS ORDERED: haloperidoL 5 MG TABLET PO PRN (17:48)
[2021-06-18] MEDS: Gabapentin 300 MG CAPSULE PO SCH (20:59)
[2021-06-18] MEDS: *HR* LORazepam 1 MG TABLET PO SCH (20:59)
[2021-06-19] MEDS: Fluticasone Propionate Nasal 50 MCG/SPRAY BOTTLE NS SCH (08:11)
[2021-06-19] MEDS: Furosemide 40 MG TABLET PO SCH (08:12)
[2021-06-19] MEDS: *HR* LORazepam 1 MG TABLET PO SCH ×2 (08:12→20:16)
[2021-06-19] MEDS: estradioL 0.5 MG TABLET PO SCH (08:12)
[2021-06-19] MEDS: hydroCHLOROthiazide 25 MG TABLET PO SCH (08:12)
[2021-06-19] MEDS: Gabapentin 300 MG CAPSULE PO SCH ×3 (08:12→20:16)
[2021-06-19] MEDS: Venlafaxine XR (24 HR) 150 MG CAP.ER.24H PO SCH (08:12)
[2021-06-19] MEDS: Nicotine 14 MG PATCH.TD24 TD SCH (08:13)
[2021-06-19] MEDS: *HR* OxyCODONE/APAP 5/325 TABLET PO PRN (09:18)
[2021-06-20] MEDS: hydroCHLOROthiazide 25 MG TABLET PO SCH (08:42)
[2021-06-20] MEDS: estradioL 0.5 MG TABLET PO SCH (08:43)
[2021-06-20] MEDS: Gabapentin 300 MG CAPSULE PO SCH ×3 (08:43→20:33)
[2021-06-20] MEDS: Venlafaxine XR (24 HR) 150 MG CAP.ER.24H PO SCH (08:44)
[2021-06-20] MEDS: Furosemide 40 MG TABLET PO SCH (08:44)
[2021-06-20] MEDS: *HR* LORazepam 1 MG TABLET PO PRN (08:44)
[2021-06-20] MEDS: Nicotine 14 MG PATCH.TD24 TD SCH (08:44)
[2021-06-20] MEDS: *HR* LORazepam 1 MG TABLET PO SCH ×2 (08:54→20:33)
[2021-06-20] MEDS: Fluticasone Propionate Nasal 50 MCG/SPRAY BOTTLE NS SCH (08:55)
[2021-06-20] MEDS: *HR* OxyCODONE/APAP 5/325 TABLET PO PRN (14:43)
[2021-06-21] MEDS: Fluticasone Propionate Nasal 50 MCG/SPRAY BOTTLE NS SCH (08:50)
[2021-06-21] MEDS: Furosemide 40 MG TABLET PO SCH (08:50)
[2021-06-21] MEDS: Gabapentin 300 MG CAPSULE PO SCH ×3 (08:50→20:07)
[2021-06-21] MEDS: estradioL 0.5 MG TABLET PO SCH (08:50)
[2021-06-21] MEDS: *HR* LORazepam 1 MG TABLET PO SCH ×2 (08:51→20:07)
[2021-06-21] MEDS: hydroCHLOROthiazide 25 MG TABLET PO SCH (08:51)
[2021-06-21] MEDS: Venlafaxine XR (24 HR) 150 MG CAP.ER.24H PO SCH (08:51)
[2021-06-21] MEDS: Nicotine 14 MG PATCH.TD24 TD SCH (08:51)
[2021-06-21] MEDS: *HR* OxyCODONE/APAP 5/325 TABLET PO PRN (20:48)
[2021-06-22] MEDS: Furosemide 40 MG TABLET PO SCH (08:14)
[2021-06-22] MEDS: hydroCHLOROthiazide 25 MG TABLET PO SCH (08:14)
[2021-06-22] MEDS: estradioL 0.5 MG TABLET PO SCH (08:15)
[2021-06-22] MEDS: *HR* LORazepam 1 MG TABLET PO SCH ×2 (08:15→20:34)
[2021-06-22] MEDS: Nicotine 14 MG PATCH.TD24 TD SCH (08:16)
[2021-06-22] MEDS: Venlafaxine XR (24 HR) 150 MG CAP.ER.24H PO SCH (08:16)
[2021-06-22] MEDS: Gabapentin 300 MG CAPSULE PO SCH ×3 (08:16→20:34)
[2021-06-22] MEDS: Fluticasone Propionate Nasal 50 MCG/SPRAY BOTTLE NS SCH (08:25)
[2021-06-22] MEDS: *HR* OxyCODONE/APAP 5/325 TABLET PO PRN ×2 (11:49→21:36)
[2021-06-22] MEDS: hydrOXYzine pamoate 25 MG CAPSULE PO PRN (11:50)
[2021-06-22] MEDS ORDERED: QUEtiapine Fumarate 25 MG TABLET PO SCH (21:00)
[2021-06-23] MEDS: Nicotine 14 MG PATCH.TD24 TD SCH (09:02)
[2021-06-23] MEDS: Gabapentin 300 MG CAPSULE PO SCH ×3 (09:05→20:30)
[2021-06-23] MEDS: Furosemide 40 MG TABLET PO SCH (09:05)
[2021-06-23] MEDS: *HR* LORazepam 1 MG TABLET PO SCH ×2 (09:08→20:30)
[2021-06-23] MEDS: estradioL 0.5 MG TABLET PO SCH (09:09)
[2021-06-23] MEDS: Fluticasone Propionate Nasal 50 MCG/SPRAY BOTTLE NS SCH (09:10)
[2021-06-23] MEDS: hydroCHLOROthiazide 25 MG TABLET PO SCH (09:10)
[2021-06-23] MEDS: *HR* OxyCODONE/APAP 5/325 TABLET PO PRN ×2 (11:37→17:34)
[2021-06-23] MEDS: hydrOXYzine pamoate 25 MG CAPSULE PO PRN ×2 (11:38→22:40)
[2021-06-23] MEDS: *HR* LORazepam 1 MG TABLET PO PRN (14:19)
[2021-06-24] MEDS: *HR* OxyCODONE/APAP 5/325 TABLET PO PRN ×3 (01:58→15:14)
[2021-06-24] MEDS: Nicotine 14 MG PATCH.TD24 TD SCH (08:53)
[2021-06-24] MEDS: estradioL 0.5 MG TABLET PO SCH (08:57)
[2021-06-24] MEDS: hydroCHLOROthiazide 25 MG TABLET PO SCH (08:58)
[2021-06-24] MEDS: Furosemide 40 MG TABLET PO SCH (08:58)
[2021-06-24] MEDS: *HR* LORazepam 1 MG TABLET PO SCH ×2 (08:58→20:17)
[2021-06-24] MEDS: Gabapentin 300 MG CAPSULE PO SCH ×3 (08:59→20:19)
[2021-06-24] MEDS: Fluticasone Propionate Nasal 50 MCG/SPRAY BOTTLE NS SCH (09:32)
[2021-06-24] MEDS: Acetaminophen 325 MG TABLET PO PRN ×2 (12:43→20:18)
[2021-06-24] MEDS: hydrOXYzine pamoate 25 MG CAPSULE PO PRN (17:50)
[2021-06-25] MEDS: *HR* OxyCODONE/APAP 5/325 TABLET PO PRN ×3 (05:45→17:56)
[2021-06-25] MEDS: hydrOXYzine pamoate 25 MG CAPSULE PO PRN (06:38)
[2021-06-25] MEDS: hydroCHLOROthiazide 25 MG TABLET PO SCH (08:54)
[2021-06-25] MEDS: estradioL 0.5 MG TABLET PO SCH (08:54)
[2021-06-25] MEDS: Gabapentin 300 MG CAPSULE PO SCH ×3 (08:54→20:08)
[2021-06-25] MEDS: *HR* LORazepam 1 MG TABLET PO SCH ×2 (08:54→20:08)
[2021-06-25] MEDS: Nicotine 14 MG PATCH.TD24 TD SCH (08:54)
[2021-06-25] MEDS: Furosemide 40 MG TABLET PO SCH (08:54)
[2021-06-25] MEDS: Fluticasone Propionate Nasal 50 MCG/SPRAY BOTTLE NS SCH (08:54)
[2021-06-25] MEDS: polyethylene glycoL 3350 17 GM POWD.PACK PO SCH (11:59)
[2021-06-26] MEDS: *HR* OxyCODONE/APAP 5/325 TABLET PO PRN ×3 (04:11→16:16)
[2021-06-26] MEDS: Nicotine 14 MG PATCH.TD24 TD SCH (08:09)
[2021-06-26] MEDS: Gabapentin 300 MG CAPSULE PO SCH ×3 (08:10→20:21)
[2021-06-26] MEDS: polyethylene glycoL 3350 17 GM POWD.PACK PO SCH (08:10)
[2021-06-26] MEDS: estradioL 0.5 MG TABLET PO SCH (08:10)
[2021-06-26] MEDS: Furosemide 40 MG TABLET PO SCH (08:10)
[2021-06-26] MEDS: hydroCHLOROthiazide 25 MG TABLET PO SCH (08:11)
[2021-06-26] MEDS: *HR* LORazepam 1 MG TABLET PO SCH ×2 (08:11→20:21)
[2021-06-26] MEDS: Fluticasone Propionate Nasal 50 MCG/SPRAY BOTTLE NS SCH (08:12)
[2021-06-26] MEDS: Acyclovir 200 MG CAPSULE PO SCH (10:21)
[2021-06-26] MEDS: Lurasidone 20 MG TABLET PO SCH (16:53)
[2021-06-27] MEDS: *HR* OxyCODONE/APAP 5/325 TABLET PO PRN ×4 (01:29→21:02)
[2021-06-27] MEDS: Acyclovir 200 MG CAPSULE PO SCH ×3 (01:35→21:00)
[2021-06-27] MEDS: estradioL 0.5 MG TABLET PO SCH (09:13)
[2021-06-27] MEDS: *HR* LORazepam 1 MG TABLET PO SCH ×2 (09:13→21:01)
[2021-06-27] MEDS: Gabapentin 300 MG CAPSULE PO SCH ×3 (09:14→21:00)
[2021-06-27] MEDS: Furosemide 40 MG TABLET PO SCH (09:14)
[2021-06-27] MEDS: polyethylene glycoL 3350 17 GM POWD.PACK PO SCH (09:14)
[2021-06-27] MEDS: hydroCHLOROthiazide 25 MG TABLET PO SCH (09:14)
[2021-06-27] MEDS: Nicotine 14 MG PATCH.TD24 TD SCH (09:14)
[2021-06-27] MEDS: Fluticasone Propionate Nasal 50 MCG/SPRAY BOTTLE NS SCH ×2 (11:56→21:07)
[2021-06-27] MEDS: Lurasidone 20 MG TABLET PO SCH (18:50)
[2021-06-28] MEDS: polyethylene glycoL 3350 17 GM POWD.PACK PO SCH (08:26)
[2021-06-28] MEDS: estradioL 0.5 MG TABLET PO SCH (08:26)
[2021-06-28] MEDS: Furosemide 40 MG TABLET PO SCH (08:27)
[2021-06-28] MEDS: hydroCHLOROthiazide 25 MG TABLET PO SCH (08:27)
[2021-06-28] MEDS: Gabapentin 300 MG CAPSULE PO SCH ×2 (08:27→14:17)
[2021-06-28] MEDS: Acyclovir 200 MG CAPSULE PO SCH (08:27)
[2021-06-28] MEDS: Nicotine 14 MG PATCH.TD24 TD SCH (08:28)
[2021-06-28] MEDS: *HR* LORazepam 1 MG TABLET PO SCH (08:28)
[2021-06-28] MEDS: *HR* OxyCODONE/APAP 5/325 TABLET PO PRN (08:30)
[2021-06-28] MEDS: Fluticasone Propionate Nasal 50 MCG/SPRAY BOTTLE NS SCH (08:45)
[2021-06-28 09:53] VITALS: BP 107/76; PULSE 78; TEMP 97.4; O2SAT 100
== END 2021-06-28 16:00 | disposition home or self-care (01) | DRG 881 ==
LOC: 1ANU 16:30
PROVIDERS: ADMIT Psychiatry & Neurology Psychiatry; ATTEND Psychiatry & Neurology Psychiatry